=== PATIENT | male | born 1975 | race Caucasian/White ===

== ENCOUNTER 2018-08-18 16:13 | Outpatient (CLI) | payer OTHER ==
[2015-09-30 11:19] VITALS: BP 113/66
== END 2018-08-18 16:15 ==
LOC: LAB 16:13
PROVIDERS: ATTEND Family Medicine
DX: E29.1 Testicular hypofunction (principal)
CPT/HCPCS: 36415; 82672; 84144; 84402; 84403

== ENCOUNTER 2018-11-03 15:55 | Outpatient (CLI) | payer OTHER ==
[2015-09-30 11:19] VITALS: BP 113/66
== END 2018-11-03 15:57 ==
LOC: LAB 15:55
PROVIDERS: ATTEND Family Medicine
DX: E29.1 Testicular hypofunction (principal)
CPT/HCPCS: 36415; 82670; 82672; 84144; 84402; 84403

== ENCOUNTER 2019-01-23 08:54 | Outpatient (CLI) | payer OTHER ==
[2015-09-30 11:19] VITALS: BP 113/66
[2019-01-23 09:55] LABS: eGFR (Non-African) > 60
[2019-01-23 10:25] LABS: HDL 49 mg/dL (>40)
== END 2019-01-23 08:56 ==
LOC: LAB 08:54
PROVIDERS: ATTEND Family Medicine
DX: E29.1 Testicular hypofunction (principal); Z00.00 Encounter for general adult medical examination without abnormal findings
CPT/HCPCS: 36415; 80053; 80061; 82672; 84153; 84402; 84403